=== PATIENT | female | born 1955 | race Caucasian/White ===

== ENCOUNTER 2016-04-07 12:54 | Emergency (ER) | payer OTHER ==
[~2016-04-07] VITALS: Wt 52.0 kg
[~2016-04-07 12:54] MED LIST: AMIT10TA6 PO; BACTDS PO; CEPH-443 PO; CEPH500C PO; FLUC150T17 PO; HYDR-902 PO; HYDR-906 PO; IBUP-1542 PO; MECL-77 PO; NAPR-260 PO; ONDA4TAB14 PO; TAMS-14 PO
[2016-04-07] MEDS ORDERED: KETOROLAC 30 MG INJ IM STA (14:39)
[2016-04-07] MEDS ORDERED: HYDROCODONE/APAP (5/325) TAB PO ONE (15:00)
[2016-04-07] MEDS ORDERED: traMADol 50 MG TAB PO ONE (15:00)
--- NOTE | 2016-04-07 15:40 | RADRPT ---
PROCEDURE: XR Lumbar Spine. CLINICAL INDICATION: Lumbar spine pain. TECHNIQUE: AP, lateral and cone-down lateral view of the lumbar spine were obtained. COMPARISON: No prior studies are available for comparison. FINDINGS: There is 2 mm of anterolisthesis of L4 on L5 due to severe facet spondylosis at this level. There i s subsequent moderate neural foraminal narrowing. There are anterior osteophytes from L3-S1 with mi ld narrowing of the intervertebral disc spaces at L5-S1. There are mild to moderate associated disc ogenic endplate changes at L5-S1. The vertebral body heights are maintained. The marrow density is in appearance. There is moderate facet spondylosis at L4-5 and L5-S1 with suggestion of neural fora liudmila narrowing at at these levels. The remaining neural foramina appear patent. The paraspinal so ft tissues unremarkable. There is no evidence of fracture. There are mild degenerative changes of the interspinous articulations from L3-L5. IMPRESSION: 1. Moderate facet spondylosis at L4-5 with grade 1 anterolisthesis and subsequent bilateral neural foraminal narrowing. 2. Mild to moderate degenerative disc disease at at L5-S1. 3. Moderate facet spondylosis at L4-5 and L5-S1 with suggestion of neural foraminal narrowing at th reid levels. RPTAT: DD .Chris French MD, Date Time Electronically viewed and signed by .Chris French MD, on 04/07/2016 15:39 .S/
[2016-04-07] MEDS ORDERED: CYCL-319 PO (15:58)
[2016-04-07] MEDS ORDERED: HYDR-906 PO (15:58)
[2016-04-07] MEDS ORDERED: IBUP400T22 PO (15:58)
--- NOTE | 2016-04-07 16:02 | ERD ---
ER Documentation Chief Complaint Date/Time DATE: 04/07/16 TIME: 16:00 Chief Complaint left hip pain non traumatic since yesterday. no deficit of deformity HPI This 61-year-old female complains of low back pain radiating to the left buttock since yesterday. He was after minor ocular movement without fall, or heavy lifting. She denies any bowel or bladder incontinence fevers, urinary complaints, weakness. She takes tramadol and ketorolac at home by history without relief. ROS All systems reviewed and are negative except as per history of present illness. Medications Home Meds Active Scripts Ibuprofen* (Motrin*) 400 Mg Tab, 400 MG PO Q6, #20 TAB Prov:CRISTIN GUTIERREZ MD 04/07/16 Cyclobenzaprine Hcl* (Cyclobenzaprine Hcl*) 10 Mg Tablet, 10 MG PO TID, #20 TAB Prov:CRISTIN GUTIERREZ MD 04/07/16 Hydrocodone/Acetaminophen ([place] 5-325 Tablet) 1 Each Tablet, 1 TAB PO Q6H Y for PAIN, #15 TAB Prov:CRISTIN GUTIERREZ MD 04/07/16 Hydrocodone/Acetaminophen ([place] 5-325 Tablet) 1 Each Tablet, 1 EACH PO Q6, #10 TAB Prov:ORION COELLO PA-C 01/15/16 Ibuprofen* (Ibuprofen*) 600 Mg Tablet, 600 MG PO Q6H Y for PAIN AND/OR INFLAMMATION, #30 TAB Prov:ORION COELLO PA-C 01/15/16 Ondansetron (Ondansetron Odt) 4 Mg Tab.rapdis, 4 MG PO Q6H Y for NAUSEA AND/OR VOMITING, #20 TAB Prov:MANAGUELOD,FARRAH P AERIAL GUNNER 12/08/15 Naproxen* (Naprosyn*) 500 Mg Tablet, 500 MG PO BID Y for PAIN AND/OR INFLAMMATION, #30 TAB Prov:MANAGUELOD,FARRAH P AERIAL GUNNER 12/08/15 Hydrocodone/Acetaminophen ([place] 5-325 Tablet) 1 Each Tablet, 1 TAB PO Q6H Y for PAIN, #20 TAB Prov:AVIS GUPTA PA-C 12/03/15 Cephalexin* (Keflex*) 500 Mg Capsule, 500 MG PO QID for 7 Days, CAP Prov:AVIS GUPTA PA-C 12/03/15 Sulfamethoxazole-Trimethoprim* (Bactrim* DS) 800-160 Mg Tab, 1 TAB PO BID for 7 Days, TAB Prov:AVIS GUPTA PA-C 12/03/15 Cephalexin* (Cephalexin*) 500 Mg Capsule, 500 MG PO Q8, #21 CAP Prov:JEANETTE SANTANA DO 12/01/15 Meclizine Hcl* (Meclizine Hcl*) 25 Mg Tablet, 25 MG PO Q8H Y for DIZZINESS, #20 TAB Prov:JEANETTE SANTANA DO 12/01/15 Hydrocodone/Acetaminophen ([place] 10-325 Tablet) 1 Each Tablet, 1 TAB PO Q6H Y for PAIN, #20 TAB Prov:JEANETTE SANTANA DO 12/01/15 Ondansetron (Ondansetron Odt) 4 Mg Tab.rapdis, 4 MG PO Q6H Y for NAUSEA AND/OR VOMITING, #10 TAB Prov:JEANETTE SANTANA DO 12/01/15 Fluconazole* (Diflucan*) 150 Mg Tablet, 150 MG PO ONCE, #1 TAB Prov:ORION COELLO PA-C 04/05/15 Reported Medications Amitriptyline Hcl* (Amitriptyline Hcl*) 10 Mg Tablet, 10 MG PO QHS, #30 TAB 12/01/15 Tamsulosin Hcl* (Flomax*) 0.4 Mg Cap.er.24h, 0.4 MG PO DAILY, CAP 12/01/15 Allergies Allergies: Coded Allergies: No Known Allergy (Unverified , 12/01/15) PMhx/Soc History of Surgery: Yes Anesthesia Reaction: No Hx Neurological Disorder: No Hx Respiratory Disorders: No Hx Cardiac Disorders: No Hx Psychiatric Problems: No Hx Miscellaneous Medical Probl: Yes (CYSTITIS) Hx Alcohol Use: No Hx Substance Use: No Hx Tobacco Use: No Physical Exam Vitals Vital Signs Date Time Temp Pulse Resp B/P Pulse Ox O2 Delivery O2 Flow Rate FiO2 04/07/16 12:56 98.5 78 21 114/61 98 Physical Exam Const: [] Alert, [id number] per Head: Atraumatic Eyes: Normal Conjunctiva ENT: Normal External Ears, Nose and Mouth. Neck: Full range of motion..~ No meningismus. Resp: Clear to auscultation bilaterally Cardio: Regular rate and rhythm, no murmurs Abd: Soft, non tender, non distended. Normal bowel sounds Skin: No petechiae or rashes Back: No midline or flank tenderness. There is some tenderness left L4-5 S1 area without midline tenderness or deformities. There is mild left buttock tenderness. There is no pain with passive range of motion left hip and minimal straight leg raise pain. Patient is ambulatory discomfort without deficits or weakness Ext: No cyanosis, or edema Neur: Awake and alert Psych: Normal Mood and Affect Results 24 hrs Current Medications Medications (Trade) Dose Ordered Sig/Rad Route PRN Reason Start Time Stop Time Status Last Admin Dose Admin Ketorolac Tromethamine (Toradol) 30 mg ONCE STAT IM 04/07/16 14:39 04/07/16 14:40 DC 04/07/16 14:54 Tramadol HCl (Ultram) 50 mg ONCE ONCE PO 04/07/16 15:00 04/07/16 15:00 DC Acetaminophen/ Hydrocodone Bitart (Stock[place] (5/325)) 1 tab ONCE ONCE PO 04/07/16 15:00 04/07/16 15:01 DC 04/07/16 14:54 Procedures/MDM X-ray LS-Spine 3V Interpreted by me: Bones: [No fracture] Joints: [No dislocation] Foreign body: [None]. Patient has normal lumbar spine with degenerative changes without fracture dislocation. Patient was given Stockton 5 mg of mouth and Toradol 30 mg IM. Patient has signs and symptoms of acute low back pain with mild sciatica. Signs and symptoms not consistent with epidural abscess, cauda equina syndrome, genitourinary etiology , neurologic deficit, fracture, dislocation. She will treated with instructions for back exercises, short course of Stockton and ibuprofen and Flexeril at home. Patient is advised to follow-up with primary doctor this week or return for fevers, new or worsening symptoms. Departure Diagnosis: Primary Impression: Sciatica Laterality: left Qualified Code: M54.32 - Sciatica of left side Condition: Stable Patient Instructions: Back Exercises, Lumbar, Back Pain W/ Sciatica Additional Instructions: X RAY DICE TIENE ATRITIS. Cheque otro vez con lopez doctor primario en el proximo mon or regresa para mas o nueva simptomas. CRISTIN GUTIERREZ MD Apr 07, 2016 16:02
[2016-04-07 16:27] VITALS: BP 130/71; PULSE 69; RESP 16; TEMP 98.2
== END 2016-04-07 16:27 | disposition home or self-care (01) ==
LOC: FTE 12:54
DX: M54.42 Lumbago with sciatica, left side (principal)
CPT/HCPCS: 72100; 96372; J1885; Z7502; Z7610

== ENCOUNTER 2016-05-10 07:15 | Emergency (ER) | payer OTHER ==
[~2016-05-10] VITALS: Ht 157.5 cm; Wt 55.5 kg
[~2016-05-10 07:15] MED LIST changes: +CYCL-319 PO; +IBUP400T22 PO
[2016-05-10 07:17] VITALS: Ht 157.5 cm; Wt 55.5 kg
[2016-05-10 07:54] LABS: URINE BLOOD (Dip) POC Trace-intact (NEGATIVE)
--- NOTE | 2016-05-10 08:19 | ERD ---
ER Documentation Chief Complaint Date/Time DATE: 05/10/16 TIME: 08:17 Chief Complaint right hip pain x 2 days HPI This is a 61-year-old female presents to the ER with right-sided buttocks pain that radiates down her right leg. Patient states that pain does radiate up to her hip. Patient states that she was diagnosed with hip arthritis. She denies any recent falls. She denies any numbness or tingling of her right leg. Patient denies any fevers or chills. Patient is also worried about her kidneys. Patient states she has chronic cystitis. Vomiting or diarrhea. She denies any saddle like anesthesia. She denies any urine or bowel incontinence. ROS 12 point review of systems was done, all negative except per HPI. Medications Home Meds Active Scripts Ibuprofen* (Motrin*) 600 Mg Tab, 600 MG PO Q6, #30 TAB Prov:CATERINA PEREZ 05/10/16 Hydrocodone/Acetaminophen (Isabella 5-325 Tablet) 1 Each Tablet, 1 TAB PO Q6H Y for PAIN, #15 TAB Prov:CATERINA PEREZ 05/10/16 Methylprednisolone* (Medrol* DOSE PACK) 4 Mg/Dose-Pack Tab.ds.pk, 4 MG PO . DIRECTED for 6 Days, PACKET Prov:CATERINA PEREZ 05/10/16 Ibuprofen* (Motrin*) 400 Mg Tab, 400 MG PO Q6, #20 TAB Prov:CRISTIN GUTIERREZ MD 04/07/16 Cyclobenzaprine Hcl* (Cyclobenzaprine Hcl*) 10 Mg Tablet, 10 MG PO TID, #20 TAB Prov:CRISTIN GUTIERREZ MD 04/07/16 Hydrocodone/Acetaminophen (Isabella 5-325 Tablet) 1 Each Tablet, 1 TAB PO Q6H Y for PAIN, #15 TAB Prov:CRISTIN GUTIERREZ MD 04/07/16 Hydrocodone/Acetaminophen (Isabella 5-325 Tablet) 1 Each Tablet, 1 EACH PO Q6, #10 TAB Prov:ORION COELLO PA-C 01/15/16 Ibuprofen* (Ibuprofen*) 600 Mg Tablet, 600 MG PO Q6H Y for PAIN AND/OR INFLAMMATION, #30 TAB Prov:ORION COELLO PA-C 01/15/16 Ondansetron (Ondansetron Odt) 4 Mg Tab.rapdis, 4 MG PO Q6H Y for NAUSEA AND/OR VOMITING, #20 TAB Prov:MANAGUELOD,FARRAH P URANIUM PROCESSING SUPERVISOR 12/08/15 Naproxen* (Naprosyn*) 500 Mg Tablet, 500 MG PO BID Y for PAIN AND/OR INFLAMMATION, #30 TAB Prov:MANAGUELOD,FARRAH P URANIUM PROCESSING SUPERVISOR 12/08/15 Hydrocodone/Acetaminophen (Isabella 5-325 Tablet) 1 Each Tablet, 1 TAB PO Q6H Y for PAIN, #20 TAB Prov:AVIS GUPTA PA-C 12/03/15 Cephalexin* (Keflex*) 500 Mg Capsule, 500 MG PO QID for 7 Days, CAP Prov:AVIS GUPTA PA-C 12/03/15 Sulfamethoxazole-Trimethoprim* (Bactrim* DS) 800-160 Mg Tab, 1 TAB PO BID for 7 Days, TAB Prov:AVIS GUPTA PA-C 12/03/15 Cephalexin* (Cephalexin*) 500 Mg Capsule, 500 MG PO Q8, #21 CAP Prov:JEANETTE SANTANA DO 12/01/15 Meclizine Hcl* (Meclizine Hcl*) 25 Mg Tablet, 25 MG PO Q8H Y for DIZZINESS, #20 TAB Prov:SEDRICK SANTANASTJAGUAR Leach DO 12/01/15 Hydrocodone/Acetaminophen (Isabella 10-325 Tablet) 1 Each Tablet, 1 TAB PO Q6H Y for PAIN, #20 TAB Prov:JEANETTE SANTANA DO 12/01/15 Ondansetron (Ondansetron Odt) 4 Mg Tab.rapdis, 4 MG PO Q6H Y for NAUSEA AND/OR VOMITING, #10 TAB Prov:SEDRICK SANTANASTMANAS A. DO 12/01/15 Fluconazole* (Diflucan*) 150 Mg Tablet, 150 MG PO ONCE, #1 TAB Prov:ORION COELLO PA-C 04/05/15 Reported Medications Amitriptyline Hcl* (Amitriptyline Hcl*) 10 Mg Tablet, 10 MG PO QHS, #30 TAB 12/01/15 Tamsulosin Hcl* (Flomax*) 0.4 Mg Cap.er.24h, 0.4 MG PO DAILY, CAP 12/01/15 Allergies Allergies: Coded Allergies: No Known Allergy (Unverified , 12/01/15) PMhx/Soc History of Surgery: No Anesthesia Reaction: No Hx Neurological Disorder: No Hx Respiratory Disorders: No Hx Cardiac Disorders: No Hx Psychiatric Problems: No Hx Miscellaneous Medical Probl: No Hx Alcohol Use: No Hx Substance Use: No Hx Tobacco Use: No Smoking Status: Never smoker Physical Exam Vitals Vital Signs Date Time Temp Pulse Resp B/P Pulse Ox O2 Delivery O2 Flow Rate FiO2 05/10/16 07:17 98.0 86 18 114/59 98 Physical Exam GENERAL: The patient is well developed and appropriate for usual state of health , in no apparent distress. HEENT: Atraumatic. CHEST: Clear to auscultation bilaterally. There are no rales, wheezes or rhonchi. HEART: Regular rate and rhythm. No murmurs, clicks, rubs or gallops. ABDOMEN: Soft, nontender and nondistended. No suprapubic pain BACK: No midline or flank tenderness. No CVA tenderness. Patient is tender to palpation to the right buttocks. No femur or leg pain. Patient has full range of motion of her right hip. Patient was tender to palpation to the sacrum as well. EXTREMITIES: Equal pulses bilaterally. Full range of motion. Grossly neurovascularly intact. NEURO: Alert and oriented. SKIN: The skin is warm and dry. Results 24 hrs Laboratory Tests Test 05/10/16 07:53 Bedside Urine pH (LAB) 6.0 Bedside Urine Protein (LAB) Negative Bedside Urine Glucose (UA) Negative Bedside Urine Ketones (LAB) Negative Bedside Urine Blood Trace-intact Bedside Urine Nitrite (LAB) Negative Bedside Urine Leukocyte Esterase (L Negative Current Medications Medications (Trade) Dose Ordered Sig/Rad Route PRN Reason Start Time Stop Time Status Last Admin Dose Admin Ibuprofen (Motrin) 600 mg ONCE ONCE PO 05/10/16 08:30 05/10/16 08:31 DC 05/10/16 08:36 Acetaminophen/ Hydrocodone Bitart (Isabella (5/325)) 1 tab ONCE ONCE PO 05/10/16 08:30 05/10/16 08:31 DC 05/10/16 08:37 Procedures/MDM This is a 61-year-old female with a past medical history of right hip arthritis that presents to the ER with right buttocks pain that radiates down her right leg. Patient likely has sciatica. Suspicion for cauda equina, epidural abscess , cord compression is low. Patient is afebrile and well-appearing. She has not had any direct trauma and she is neurovascularly intact with no history of urine, bowel incontinence or saddle like anesthesia. I also doubt septic joint , septic arthritis or any other infectious process. Patient did present with some tenderness over her sacrum so x-ray was ordered however x-ray was completely normal. I doubt fracture or dislocations. Patient did have a history of chronic UTIs, however there is no evidence of UTI at this time. Patient will be sent home with a Medrol Dosepak, Isabella, ibuprofen. She is to follow-up with her primary care doctor within 1-2 days or return to ER sooner if symptoms worsen. My medical decision making was shared with the patient she understands and agrees with plan. Departure Diagnosis: Primary Impression: Sciatica Condition: Stable CATERINA PEREZ May 10, 2016 08:19
[2016-05-10] MEDS ORDERED: IBUPROFEN 600 MG TAB PO ONE (08:30)
[2016-05-10] MEDS ORDERED: HYDROCODONE/APAP (5/325) TAB PO ONE (08:30)
--- NOTE | 2016-05-10 09:10 | RADRPT ---
PROCEDURE: XR Sacrum and Coccyx. CLINICAL INDICATION: Sacrococcygeal pain TECHNIQUE: 4 views of the sacrum and coccyx were performed. COMPARISON: No prior studies are available for comparison. FINDINGS: There is normal sacral and coccygeal mineralization and alignment. No fracture or subluxation is see n. The sacroiliac joints appear normal. The soft tissues are unremarkable. The coccygeal elements ar e intact and in normal alignment. No fracture or dislocation is seen. IMPRESSION: 1. Unremarkable x-ray examination of the sacrum and coccyx. RPTAT: HMJB .New Real MD, MD Date Time Electronically viewed and signed by .New Real MD, MD on 05/10/2016 09:10 .B/
[2016-05-10] MEDS ORDERED: MED4DP PO (09:13)
[2016-05-10] MEDS ORDERED: IBUP-1542 PO (09:14)
[2016-05-10] MEDS ORDERED: HYDR-906 PO (09:14)
== END 2016-05-10 09:30 | disposition home or self-care (01) ==
LOC: FTE 07:15
DX: M54.41 Lumbago with sciatica, right side (principal)
CPT/HCPCS: 72220; 81003; Z7502; Z7610

== ENCOUNTER 2016-10-21 12:46 | Emergency (ER) | payer OTHER ==
[~2016-10-21] VITALS: Wt 55.0 kg
[~2016-10-21 12:46] MED LIST changes: +MED4DP PO
[2016-10-21] MEDS ORDERED: BEN25 PO (14:29)
[2016-10-21] MEDS ORDERED: CLOT30CR24 TOP (14:29)
--- NOTE | 2016-10-21 15:04 | ERD ---
ER Documentation Chief Complaint Date/Time DATE: 10/21/16 TIME: 14:59 Chief Complaint PAINFUL RASH ON CHEST AREA UNDER BREAST HPI This is a 61-year-old female presenting to emergency department with pruritic rash under right breast. Patient states she has had itching under her right breast for the past 3 days and noticed today she had a erythematous rash. Rash is nonpainful. Rash is not spreading. No drainage. No fevers or chills. No shortness of breath or difficulty breathing. ROS All systems reviewed and are negative except as per history of present illness. Medications Home Meds Active Scripts Diphenhydramine Hcl* (Benadryl*) 25 Mg Cap, 25 MG PO Q6, #15 CAP Prov:VIOLA HADLEY NP 10/21/16 Clotrimazole* (Clotrimazole* AF) 1% - 30 Gm Cream.gm., 1 APPLIC TOP BID for 7 Days, TUB Prov:VIOLA HADLEY NP 10/21/16 Ibuprofen* (Motrin*) 600 Mg Tab, 600 MG PO Q6, #30 TAB Prov:CATERINA PEREZ 05/10/16 Hydrocodone/Acetaminophen (Delta 5-325 Tablet) 1 Each Tablet, 1 TAB PO Q6H Y for PAIN, #15 TAB Prov:CATERINA PEREZ 05/10/16 Methylprednisolone* (Medrol* DOSE PACK) 4 Mg/Dose-Pack Tab.ds.pk, 4 MG PO . DIRECTED for 6 Days, PACKET Prov:CATERINA PEREZ 05/10/16 Ibuprofen* (Motrin*) 400 Mg Tab, 400 MG PO Q6, #20 TAB Prov:CRISTIN GUTIERREZ MD 04/07/16 Cyclobenzaprine Hcl* (Cyclobenzaprine Hcl*) 10 Mg Tablet, 10 MG PO TID, #20 TAB Prov:CRISTIN GUTIERREZ MD 04/07/16 Hydrocodone/Acetaminophen (Delta 5-325 Tablet) 1 Each Tablet, 1 TAB PO Q6H Y for PAIN, #15 TAB Prov:CRISTIN GUTIERREZ MD 04/07/16 Hydrocodone/Acetaminophen (Delta 5-325 Tablet) 1 Each Tablet, 1 EACH PO Q6, #10 TAB Prov:ORION COELLO PA-C 01/15/16 Ibuprofen* (Ibuprofen*) 600 Mg Tablet, 600 MG PO Q6H Y for PAIN AND/OR INFLAMMATION, #30 TAB Prov:ORION COELLO PA-C 01/15/16 Ondansetron (Ondansetron Odt) 4 Mg Tab.rapdis, 4 MG PO Q6H Y for NAUSEA AND/OR VOMITING, #20 TAB Prov:MANAGUELOD,FARRAH P BRICK WHEELER 12/08/15 Naproxen* (Naprosyn*) 500 Mg Tablet, 500 MG PO BID Y for PAIN AND/OR INFLAMMATION, #30 TAB Prov:MANAGUELOD,FARRAH P BRICK WHEELER 12/08/15 Hydrocodone/Acetaminophen (Delta 5-325 Tablet) 1 Each Tablet, 1 TAB PO Q6H Y for PAIN, #20 TAB Prov:AVIS GUPTA PA-C 12/03/15 Cephalexin* (Keflex*) 500 Mg Capsule, 500 MG PO QID for 7 Days, CAP Prov:AVIS GUPTA PA-C 12/03/15 Sulfamethoxazole-Trimethoprim* (Bactrim* DS) 800-160 Mg Tab, 1 TAB PO BID for 7 Days, TAB Prov:AVIS GUPTA PA-C 12/03/15 Cephalexin* (Cephalexin*) 500 Mg Capsule, 500 MG PO Q8, #21 CAP Prov:JEANETTE SANTANA DO 12/01/15 Meclizine Hcl* (Meclizine Hcl*) 25 Mg Tablet, 25 MG PO Q8H Y for DIZZINESS, #20 TAB Prov:JEANETTE SANTANA DO 12/01/15 Hydrocodone/Acetaminophen (Delta 10-325 Tablet) 1 Each Tablet, 1 TAB PO Q6H Y for PAIN, #20 TAB Prov:JEANETTE SANTANA DO 12/01/15 Ondansetron (Ondansetron Odt) 4 Mg Tab.rapdis, 4 MG PO Q6H Y for NAUSEA AND/OR VOMITING, #10 TAB Prov:JEANETTE SANTANA. DO 12/01/15 Fluconazole* (Diflucan*) 150 Mg Tablet, 150 MG PO ONCE, #1 TAB Prov:ORION COELLO PA-C 04/05/15 Reported Medications Amitriptyline Hcl* (Amitriptyline Hcl*) 10 Mg Tablet, 10 MG PO QHS, #30 TAB 12/01/15 Tamsulosin Hcl* (Flomax*) 0.4 Mg Cap.er.24h, 0.4 MG PO DAILY, CAP 12/01/15 Allergies Allergies: Coded Allergies: No Known Allergy (Unverified , 10/21/16) PMhx/Soc Medical and Surgical Hx: pt denies Medical Hx, pt denies Surgical Hx History of Surgery: No Anesthesia Reaction: No Hx Neurological Disorder: No Hx Respiratory Disorders: No Hx Cardiac Disorders: No Hx Psychiatric Problems: No Hx Miscellaneous Medical Probl: No Hx Alcohol Use: No Hx Substance Use: No Hx Tobacco Use: No Smoking Status: Never smoker Physical Exam Vitals Vital Signs Date Time Temp Pulse Resp B/P Pulse Ox O2 Delivery O2 Flow Rate FiO2 10/21/16 12:50 97.7 66 18 114/62 100 Physical Exam Const: alert, non ill appearing Head: Atraumatic Eyes: Normal Conjunctiva ENT: Normal External Ears, Nose and Mouth. Neck: Full range of motion..~ No meningismus. Resp: Clear to auscultation bilaterally Cardio: Regular rate and rhythm, no murmurs Abd: Soft, non tender, non distended. Normal bowel sounds Skin: erythematous macules under right breast. no discharge. no vesicles. no induration or fluctuance. Back: No midline or flank tenderness Ext: No cyanosis, or edema Neur: Awake and alert Psych: Normal Mood and Affect Procedures/MDM Adam: This is a 61-year-old female presenting to emergency department with pruritic rash 3 days. Patient states she tried Benadryl without relief of symptoms. Rash is erythematous macules underneath right breast likely fungal in nature. No fluctuance or induration. Patient is afebrile and vitals are stable. No s/s respiratory distress. Patient for bacterial infection or abscess. Patient is appropriate for outpatient management will be given prescription for clotrimazole cream and Benadryl. Instructed patient to follow-up with primary care provider in the next 2-3 days for reassessment. Resources provided. Return to ED for any high fever, chest pain, difficulty breathing, shortness breath, wheezing, vomiting, diarrhea, abdominal pain or any new or worsening symptoms. Patient verbalizes understanding. All questions answered at discharge. Romansh translation used during this encounter. Disclaimer: Inadvertent spelling and grammatical errors are likely due to EHR/ dictation software use and do not reflect on the overall quality of patient care. Also, please note that the electronic time recorded on this note does not necessarily reflect the actual time of the patient encounter. Departure Diagnosis: Primary Impression: Rash Condition: Stable Patient Instructions: Self-Care for Skin Rashes Referrals: [facility] Usted se cole hecho un examen mdico de control que le indica que no est en gaby condicin que requiera tratamiento urgente en el Departamento de Emergencia. Un estudio ms profundo y el tratamiento de lopez condicin pueden esperar sin ningn riesgo hasta que usted sea atendida/o en el consultorio de lopez mdico o gaby cl mark. Es responsabilidad suya arreglar gaby rigoberto para el seguimiento del william. MANEJO DE CONDICIONES NO URGENTES EN EL FUTURO 1) Si usted tiene un mdico de atencin primaria: Usted debera llamar a lopez mdico de atencin primaria antes de venir al departamento de emergencia. Despus de las horas de consultorio, lopez doctor o lopez asociado/a est disponible por telfono. El mdico o enfermero de rocio en el servicio telefnico puede asesorarle por reid medio para atender el problema, o william contrario se puede programar gaby rigoberto. 2) Si usted no tiene un mdico de atencin primaria: Llame al mdico o clnica de referencia que aparece abajo christin las horas de consultorio para hacer gaby rigoberto para que le vean. CLINICAS: [facility] [phone] [id number] [phone] [facility] [phone] [facility] [phone] [facility]. [facility] [phone] 68[address] [facility] [phone] [address] . [facility] () Usted se cole hecho un examen mdico de control que le indica que no est en gaby condicin que requiera tratamiento urgente en el Departamento de Emergencia. Un estudio ms profundo y el tratamiento de lopez condicin pueden esperar sin ningn riesgo hasta que usted sea atendida/o en el consultorio de lopez mdico o gaby cl mark. Es responsabilidad suya arreglar gaby rigoberto para el seguimiento del william. MANEJO DE CONDICIONES NO URGENTES EN EL FUTURO 1) Si usted tiene un mdico de atencin primaria: Usted debera llamar a lopez mdico de atencin primaria antes de venir al departamento de emergencia. Despus de las horas de consultorio, lopez doctor o lopez asociado/a est disponible por telfono. El mdico o enfermero de rocio en el servicio telefnico puede asesorarle por reid medio para atender el problema, o william contrario se puede programar gaby rigoberto. 2) Si usted no tiene un mdico de atencin primaria: Llame al mdico o condado institucions de referencia que aparece abajo christin las horas de consultorio para hacer gaby rigoberto para que le vean. SI USTED NO PUEDE PAGAR PARA DOMINICK UN MEDICO puede ir a: [facility] [address] [place] [address] [facility] [address] [place] [address] [facility] [address] [place] [address] PARA [facility] [address] [place] [address] Additional Instructions: Llame al doctor MAANA y jeanine gaby RIGOBERTO PARA DENTRO DE 2-3 SALGUERO.Dgale a la secretaria que nosotros le instruimos hacer esta rigoberto.Avise o llame si lopez condicin se empeora antes de la rigoberto. Regresa aqui si peor o no mejor. Regresar a ED por fiebre kim, dolor en el pecho, dificultad para respirar, respiracin entrecortada, sibilancias, vmitos, diarrea, dolor abdominal o cualquier sntoma nuevo o que empeora. VIOLA HADLEY NP Oct 21, 2016 15:04
--- NOTE | 2016-10-24 04:41 | CONS ---
DATE OF ADMISSION: 10/21/2016 DATE OF CONSULTATION: 10/21/2016 I thank you very much for this kind referral. Ms. Susan Mott is a 60-year-old female patient who was referred to me for further evaluation of positive occult blood in the stool. The patient also noticed change in the bowel habits. There is no past history of colon neoplasm. The patient never had a screening colonoscopy. The patient also complains of upper abdominal pain, not responding to symptomatic medical therapy. No history of peptic ulcer disease. Not on nonsteroidal anti- inflammatory agents. No history of gallstones or liver disease. No heart disease or lung problem of kidney disease. Not hypertensive or diabetic. SOCIAL HISTORY: Nonsmoker. No alcohol abuse. FAMILY HISTORY: The patient's father had stomach cancer. ALLERGIES: NO DRUG ALLERGIES. MEDICATIONS: Medicine for bladder. PHYSICAL EXAMINATION: VITALS: She is 5 feet tall, and she weighs 125 pounds. HEART: Normal heart sounds. LUNGS: Clear. ABDOMEN: Soft. No masses. Normal bowel sounds. NEURO: Normal neurological exam. IMPRESSION: 1. Change in the bowel habits. 2. Positive occult blood in stool. The patient never had a screening colonoscopy. 3. Upper abdominal pain not responding to therapy. 4. The patient's father had stomach cancer. PLAN: Colonoscopy and upper endoscopy for further evaluation. The procedures and possible complications were well explained to the patient. She understands and consents to the procedures. I thank you once again. With warmest personal regards, Dictated By: MD ASHLEY Roman/justyna/carmelo /Document#: [id number]
== END 2016-10-21 14:40 | disposition home or self-care (01) ==
LOC: FTE 12:46
DX: R21 Rash and other nonspecific skin eruption (principal)
CPT/HCPCS: 99283

== ENCOUNTER 2016-12-30 11:21 | Day surgery (SDC) | payer OTHER ==
[~2016-12-30] VITALS: Ht 147.3 cm; Wt 53.6 kg
[~2016-12-30 11:21] MED LIST changes: +BEN25 PO; +CLOT30CR24 TOP
[2016-12-30 13:09] VITALS: Ht 147.3 cm; Wt 53.6 kg
[2016-12-30 13:27] VITALS: BP 107/55; PULSE 80; RESP 18
--- NOTE | 2016-12-30 14:21 | OPPN ---
Date/Time of Note Date/Time of Note DATE: 12/30/16 TIME: 14:20 Operative Report Preoperative Diagnosis Abdominal pain Positive occult blood in stool Postoperative Diagnosis Small hiatal hernia and gastroesophageal reflux disease Gastritis with erosions Internal and external hemorrhoids Operation/Procedure Performed Esophagogastroduodenoscopy and biopsy Colonoscopy Surgeon see signature line placement assistant None Anesthesia: moderate sedation Estimated blood loss: none Transfusion Required none Specimen Gastric mucosal biopsy Grafts/Implants none Complications none TENA WOO MD Dec 30, 2016 14:21
[2016-12-30] MEDS ORDERED: FENTAnyl 50 MCG/ML VIAL ONE (14:37)
[2016-12-30] MEDS ORDERED: MIDAZOLAM 1 MG/ML 2 ML INJ ONE ×3 (14:37)
--- NOTE | 2016-12-30 20:31 | GILP ---
DATE OF PROCEDURE: NAME OF THE PROCEDURES: 1. Esophagogastroduodenoscopy and biopsy. 2. Colonoscopy. SURGEON: Tena Glez MD PREOPERATIVE DIAGNOSES: 1. Abdominal pain. 2. Positive occult blood in stool. POSTOPERATIVE DIAGNOSES: 1. Small hiatal hernia. 2. Gastroesophageal reflux disease. 3. Gastritis with erosions. 4. Gastric mucosal biopsies were taken for Helicobacter pylori test. 5. Colonoscopy all the way to the cecum. 6. Internal and external hemorrhoids. 7. No colon neoplasm was identified. INDICATION FOR THE PROCEDURES: Ms. Susan Walker is a 61-year-old female patient who had uppe r abdominal pain not responding to therapy. She was also noted to have positive occult blood in sto ol. The patient was scheduled for endoscopy and colonoscopy for further evaluation. The procedures and possible complications were well explained to the patient. The patient understoo d and consented to the procedures. DESCRIPTION OF PROCEDURE: Under the influence of fentanyl and Versed, the gastroscope was carefully introduced into the esophagus and under direct vision, it was advanced to the stomach and through t he pylorus into the duodenal bulb and descending duodenum. FINDINGS: ESOPHAGUS: The patient had a small hiatal hernia and gastroesophageal reflux disease. STOMACH: She had gastritis with erosions. Gastric mucosal biopsies were taken for H. pylori test. DUODENUM: Normal. The colonoscope was carefully introduced in the rectum and under direct vision, it was advanced all the way to the cecum. FINDINGS: The patient had internal and external hemorrhoids. No colon neoplasm was identified. She tolerated the procedures very well, and there was no complication from the procedures. At the e nd of the procedures, she was awake with stable vital signs, and she was discharged home to the care of her family. IMPRESSION: Please see postoperative diagnoses. PLAN: 1. Omeprazole 40 mg p.o. q.a.m. 2. Await H. pylori test report. 3. Next screening colonoscopy in 10 years. Dictated By: TENA RAMIREZ/AMELIA Conf#: [id number] DID#: [id number]
== END 2016-12-30 15:32 | disposition home or self-care (01) ==
LOC: GIL 11:21
PROVIDERS: ATTEND Internal Medicine Gastroenterology
DX: K92.1 Melena (principal); K44.9 Diaphragmatic hernia without obstruction or gangrene; K21.9 Gastro-esophageal reflux disease without esophagitis; K29.60 Other gastritis without bleeding; K64.8 Other hemorrhoids; K64.4 Residual hemorrhoidal skin tags
CPT/HCPCS: 43239; 45378; 87081; J2250; J3010; Z7610

== ENCOUNTER 2017-02-20 09:50 | Emergency (ER) | END 2017-02-20 12:02 | disposition home or self-care (01) ==

== ENCOUNTER 2017-03-25 09:54 | Emergency (ER) | END 2017-03-25 13:37 | disposition home or self-care (01) ==

== ENCOUNTER 2017-05-24 09:58 | Emergency (ER) | END 2017-05-24 14:01 | disposition home or self-care (01) ==

== ENCOUNTER 2017-05-28 15:53 | Emergency (ER) | END 2017-05-28 16:50 | disposition home or self-care (01) ==

== ENCOUNTER 2018-04-18 07:29 | Day surgery (SDC) | payer OTHER ==
[2018-04-18] VITALS (13 sets, daily range): BP systolic 101–126; BP diastolic 58–74; PULSE 56–76; RESP 13–20; Ht 144.8 cm; Wt 49.0 kg
[~2018-04-18] VITALS: Ht 144.8 cm; Wt 49.0 kg
[~2018-04-18 07:29] MED LIST changes: +ACET325T33 PO; -BACTDS PO; -BEN25 PO; +CEFAZOLIN 2 GM/50 ML (PMX) 50 ML IVPB ONE; -CEPH500C PO; -CLOT30CR24 TOP; -CYCL-319 PO; -FLUC150T17 PO; +GUAI-173 PO; -HYDR-902 PO; -HYDR-906 PO; -IBUP-1542 PO; -IBUP400T22 PO; +LIDOCAINE 2% (SDV) 5 ML INJ ONE; -MECL-77 PO; -MED4DP PO; -NAPR-260 PO; +NAPR-985 PO; +OMEP40CA6 PO; -ONDA4TAB14 PO; +PRED20TA PO; +SOD CHLORIDE 0.9% 1,000 ML IV SCH; +SULF1TAB31 PO
[2018-04-18] MEDS ORDERED: BUPIVACAINE 0.25% (MPF) 30 ML INJ ONE (08:23)
--- NOTE | 2018-04-18 08:46 | PREAC ---
Date/Time of Note Date/Time of Note DATE: 04/18/18 TIME: 08:45 Anesthesia Eval and Record Evaluation Time Pre-Procedure Interview DATE: 04/18/18 TIME: 08:45 Age 63 Sex female NPO: 8 hrs Preoperative diagnosis cholelithiasis Planned procedure laparoscopic cholecystectomy Past Medical History Past Medical History: Includes Surgery & Anesthesia Issues No known issue Meds Anticoagulation: No Beta Jovi within 24 hr: No Reason Beta Jovi not given: Pt. not on B-Jovi Reported Medications Amitriptyline Hcl* (Amitriptyline Hcl*) 10 Mg Tablet, 10 MG PO QHS, #30 TAB 12/01/15 Tamsulosin Hcl* (Flomax*) 0.4 Mg Cap.er.24h, 0.4 MG PO DAILY, CAP 12/01/15 Discontinued Scripts Naproxen* (Naprosyn*) 500 Mg Tablet, 500 MG PO BID PRN for PAIN AND/OR INFLAMMATION, #30 TAB Prov:ORION COELLO PA-C 05/28/17 Cephalexin* (Keflex*) 500 Mg Capsule, 500 MG PO QID for 5 Days, CAP Prov:ORION COELLO PA-C 05/28/17 Acetaminophen* (Tylenol*) 325 Mg Tablet, 2 TAB PO Q4 PRN for PAIN AND OR ELEVATED TEMP, #30 TAB Prov:ORION COELLO PA-C 05/24/17 Sulfamethoxazole/Trimethoprim* (Bactrim Ds* Tablet) 1 Each Tablet, 1 TAB PO BID, #14 TAB Prov:ORION COELLO PA-C 05/24/17 Cephalexin* (Keflex*) 500 Mg Capsule, 500 MG PO QID for 7 Days, CAP Prov:ORION COELLO PA-C 18 Prednisone* (Prednisone*) 20 Mg Tab, 40 MG PO DAILY for 4 Days, TAB Prov:CHRISCATERINA JOHNSON 03/25/17 Guaifenesin* (Tussin*) 100 Mg/5 Ml Syrup, 200 MG PO Q6 PRN for COUGH for 3 Days, ML Prov:CHRISCATERINA C 03/25/17 Omeprazole* (Omeprazole*) 40 Mg Capsule.dr, 40 MG PO QAM, #14 CAP Prov:KATHERINE SALMERON PA-C 02/20/17 Current Medications Sodium Chloride 1,000 ml @ 75 mls/hr [id number] IV ; Start 04/18/18 at 07:00; Stop 04/18/18 at 20:19 Meds reviewed: Yes Allergies Coded Allergies: No Known Allergy (Unverified , 04/18/18) Allergies Reviewed: Yes Labs/Studies Labs Reviewed: Reviewed by anesthesiologist test: N/A Studies: ECG, CXR Pre-procedure Exam Last vitals Vital Signs Date Temp Pulse Resp B/P (MAP) Pulse Ox O2 O2 Flow FiO2 Time Delivery Rate 04/18/18 98.0 76 16 101/58 100 Room Air 08:03 (72) Airway: Adequate mouth opening, Adequate thyromental dist Mallampati: Mallampati II Teeth: Normal Lung: Normal Heart: Normal ASA Physical Status ASA physical status: 2 Emergency: None Planned Anesthetic General/MAC: ETT Planned Pain Management Parenteral pain med Pre-operative Attestations Prior to commencing anesthesia and surgery, the patient was re-evaluated, there was verification of: *The patient's identity *The results of appropriate recent lab work and preoperative vital signs *The above evaluation not changing prior to induction *Anesthetic plan, risk benefits, alternative and complications discussed with patient/family; questions answered; patient/family understands, accepts and wishes to proceed. AVIS JACK Apr 18, 2018 08:46
[2018-04-18] MEDS ORDERED: PROPOFOL 100 ML ONE (08:52)
[2018-04-18] MEDS ORDERED: ROCURONIUM 50 MG INJ ONE (08:52)
[2018-04-18] MEDS ORDERED: FENTAnyl 50 MCG/ML VIAL ONE (09:01)
[2018-04-18] MEDS ORDERED: CEFAZOLIN 1 GM INJ ONE (09:03)
[2018-04-18] MEDS ORDERED: HYDROCODONE/APAP (5/325) TAB PO SCH (09:30)
--- NOTE | 2018-04-18 09:30 | OPR ---
Date/Time of Note Date/Time of Note DATE: 04/18/18 TIME: 09:28 Operative Report Procedure Date: Apr 18, 2018 Preoperative Diagnosis symptomatic gallstones Postoperative Diagnosis same Operation/Procedure Performed laparoscopic cholecystectomy Surgeon see signature line Utilities Estimator And Drafter none Anesthesia Type: general Estimated Blood Loss: 0 - 10 ml's Transfusion none Specimen gallbladder Grafts/Implants none Complications none Pt Condition Post Procedure: stable Indications This is a 63-year-old female with symptomatic gallstones. She required surgical excision of her gallbladder. Risks benefits alternatives been personnel were discussed the patient. Patient expresses understanding and consents to the operation. Procedure Description Patient is taken to the OR and prepped and draped in usual sterile fashion. Surgical time was performed. IV antibiotics given. Infraumbilical transverse incision was made with a 15 blade. Dissection with cautery was carried onto the fascia. The fascia was grasped with Dodge's and divided with curved White scissors. 0 Vicryl U stitches placed into the fascia. Olvera trocar was introduced. Pneumoperitoneum is established. Midepigastric 12 mm optical trochars placed under direct position. Right upper quadrant upper flank 5 mm optical trochars were placed under direct position. Upon initial inspection there are some adhesions of the gallbladder which were taken down bluntly. The gallbladder is grasped the fundus and retracted in the lateral and cephalad direction. [place] graspers were used to dissect out the cystic duct and cystic artery. The critical view was established. The cystic duct is divided with 3 clips proximally and one clip distally. The cystic duct is divided with laparoscopic scissors. The cystic artery is divided with 3 clips proximal 1 clip distal and the division was performed laparoscopic scissors. The gallbladder is taken of the gallbladder bed. Good hemostasis established. The gallbladder is retrieved using Endo Catch bag. Ports removed under direct position. 0 Vicryl was tied down. Skin is closed and skin erich. Therapeutic contains local anesthesia was injected throughout all port sites. Dry dressings were applied. Jann DAUGHERTY Apr 18, 2018 09:30
[2018-04-18] MEDS ORDERED: GLYCOPYRROLATE 0.4 MG INJ ONE (09:35)
[2018-04-18] MEDS ORDERED: NEOSTIGMINE 10 MG INJ ONE (09:35)
--- NOTE | 2018-04-18 09:41 | PAC ---
Date/Time of Note Date/Time of Note DATE: 04/18/18 TIME: 09:41 Post-Anesthesia Notes Post-Anesthesia Note Last documented vital signs Vital Signs Date Temp Pulse Resp B/P (MAP) Pulse Ox O2 O2 Flow FiO2 Time Delivery Rate 04/18/18 98.0 76 16 101/58 100 Room Air 0941 (72) Activity: WNL Respiratory function: WNL Cardiovascular function: WNL Mental status: Baseline Pain reasonably controlled: Yes Hydration appropriate: Yes Nausea/Vomiting absent: Yes AVIS JACK Apr 18, 2018 09:41
[2018-04-18] MEDS ORDERED: KETOROLAC 30 MG INJ ONE (09:46)
[2018-04-18] MEDS: HYDROmorphONE 1 MG/5 ML IV SYRINGE IV PRN ×2 (09:58→10:15)
[2018-04-18] MEDS: FENTAnyl 50 MCG/ML VIAL IV PRN ×2 (09:58→10:15)
[2018-04-18] MEDS ORDERED: MEPERIDINE 25 MG INJ IV PRN (10:00)
[2018-04-18] MEDS ORDERED: HYDROmorphONE 1 MG/5 ML IV SYRINGE IV PRN ×2 (10:00)
[2018-04-18] MEDS ORDERED: ALBUTEROL 0.083% (NEB) 2.5 MG/3 ML AMP HHN PRN (10:00)
[2018-04-18] MEDS ORDERED: OXYCODONE/ACETAMINOPHEN (5/325) TAB PO PRN ×2 (10:00)
[2018-04-18] MEDS ORDERED: MIDAZOLAM 1 MG/ML 2 ML INJ IV PRN (10:00)
[2018-04-18] MEDS ORDERED: LABETALOL HCL 20MG INJ IV PRN (10:00)
[2018-04-18] MEDS ORDERED: hydrALAzine 20 MG INJ IV PRN (10:00)
[2018-04-18] MEDS ORDERED: DIPHENHYDRAMINE 50 MG INJ IV PRN (10:00)
[2018-04-18] MEDS ORDERED: KETOROLAC 30 MG INJ IV PRN (10:00)
[2018-04-18] MEDS ORDERED: EPHEDrine SULFATE 50 MG/5 ML SYG IV PRN (10:00)
[2018-04-18] MEDS ORDERED: METOCLOPRAMIDE 10 MG INJ IV PRN (10:00)
[2018-04-18] MEDS ORDERED: ONDANSETRON 4 MG INJ IV PRN (10:00)
[2018-04-18] MEDS ORDERED: FENTAnyl 50 MCG/ML VIAL IV PRN ×2 (10:00)
== END 2018-04-18 11:30 | disposition home or self-care (01) ==
LOC: SDS 07:29
PROVIDERS: ATTEND Surgery
DX: K80.10 Calculus of gallbladder with chronic cholecystitis without obstruction (principal)
CPT/HCPCS: 47562; 71045; 88304; J0690; J1170; J1885; J2405; J2710; J3010; Z7512; Z7610